=== PATIENT | male | born 1975 | race Hispanic/Latino ===

== ENCOUNTER 2019-01-26 21:27 | Observation (INO) | payer MEDICARE ==
[2019-01-26] MEDS ORDERED: NACL 0.9% 500 ML 500 ML IV ONE (21:46)
[2019-01-26] MEDS ORDERED: NACL 0.9% 1000 ML IV ONE (21:52)
[2019-01-26] MEDS ORDERED: TYLENOL PO ONE (21:54)
[2019-01-26] MEDS ORDERED: MORPHINE IV ONE (21:54)
[2019-01-26] MEDS ORDERED: ZOFRAN IV ONE (21:54)
[2019-01-26] MEDS ORDERED: ZITHROMAX PO ONE (21:56)
--- NOTE | 2019-01-26 22:01 | Emergency Department Report ---
- General Chief Complaint: Upper Respiratory Infection Stated Complaint: COLD SX Time Seen by Provider: 01/26/19 21:44 Source: patient Mode of arrival: Ambulatory Limitations: No Limitations - History of Present Illness Initial Comments: 43-year-old male with a past medical history of obesity, anxiety (on Xanax) Crohn's disease of the small intestines, small bowel surgery, perforated ulcer were partial stomach removal, PEG tube tube placement that was removed in October in [facility] presents to the hospital with cough, cold, and fever 2-3 days. Patient recently relocated here from [facility] 2 weeks ago. He does not have a local PMD. Recent surgery and outpatient follow-up with in [place]. Patient complains of a sore throat, cough productive of sputum, f rontal headache, generalized body aches, and fever 2-3 days. Patient didn't receive a flu shot. Positive nausea. Patient complains of pain around recent PEG removal site. He denies vomiting, dysuria, or diarrhea. Patient takes [place] as needed for chronic pain, Xanax for anxiety, and prednisone daily for Crohn's - Related Data Allergies Allergy/AdvReac Type Severity Reaction Status Date / Time No Known Allergies Allergy Unverified 01/26/19 21:30 ED Review of Systems ROS: Stated complaint: COLD SX Other details as noted in HPI Comment: All other systems reviewed and negative ED Past Medical Hx - Past Medical History Previous Medical History?: Yes Hx Psychiatric Treatment: Yes (anxiety) Additional medical history: chrohn's of small intestine - Surgical History Past Surgical History?: Yes Additional Surgical History: small bowel sx, 2018. October 2018 PEG tube removal. PEG was placed after perforated ulcer and partial stomach removal - Social History Smoking Status: Unknown if ever smoked Substance Use Type: None ED Physical Exam - General Limitations: No Limitations - Other Other exam information: General: No limitations, patient is alert in no acute distress Head exam: Atraumatic, normocephalic Eyes exam: Normal appearance ENT: Moist mucous membrane, tonsillar exudates, erythema, and edema with kissing tonsils. Uvula midline. b/l cauliflower ears Neck exam: Normal inspection, full range of motion, no meningismus nontender Respiratory exam: Clear to auscultation bilateral, no wheezes, rales, crackles Cardiovascular: Tachycardic regular rhythm Abdomen: Soft, nondistended, midline vertical surgical scar noted. Mild erythema and tenderness along the apex stoma site which is closed and healing, with normal bowel sounds, no rebound, or guarding Extremity: Full range of motion normal inspection no deformity Back: Normal Inspection, full range of motion, no tenderness Neurologic: Alert, oriented x3, cranial nerves intact, no motor or sensory deficit Psychiatric: normal affect, normal mood Skin: Warm, dry, intact ED Course Vital Signs 01/26/19 01/26/19 01/26/19 21:42 21:46 22:00 Temperature 101.4 F H Pulse Rate 122 H 111 H Respiratory 20 28 H Rate Blood Pressure 156/80 164/101 143/100 Blood Pressure [Left] O2 Sat by Pulse 99 98 93 Oximetry 01/26/19 01/26/19 01/26/19 22:06 22:11 22:36 Temperature Pulse Rate Respiratory 20 20 16 Rate Blood Pressure Blood Pressure [Left] O2 Sat by Pulse 99 Oximetry 01/26/19 01/27/19 01/27/19 23:35 00:10 00:58 Temperature 101.2 F H 102.4 F H 102.7 F H Pulse Rate 107 H 107 H 113 H Respiratory 16 16 16 Rate Blood Pressure Blood Pressure 146/86 138/88 131/89 [Left] O2 Sat by Pulse 95 95 94 Oximetry - ABG Interpretation Ph: 7.458 PCO2: 36 PO2: 51 Bicarbonate: 25 Interpretation: other (hypoxia) Additional Comments: hypoxia on room air ED Medical Decision Making - Lab Data Result diagrams: 01/26/19 21:48 01/26/19 21:48 Lab Results 01/26/19 01/26/19 01/26/19 Range/Units 21:48 21:48 21:48 WBC 8.2 (4.5-11.0) K/mm3 RBC 3.85 (3.65-5.03) M/mm3 Hgb 12.2 (11.8-15.2) gm/dl Hct 35.9 (35.5-45.6) % MCV 93 (84-94) fl MCH 32 (28-32) pg MCHC 34 (32-34) % RDW 17.6 H (13.2-15.2) % Plt Count 210 (140-440) K/mm3 Add Manual Diff Complete Total Counted 100 Seg Neutrophils % [employer] Seg Neuts % (Manual) 90.0 H (40.0-70.0) % Band Neutrophils % 3.0 % Lymphocytes % (Manual) 2.0 L (13.4-35.0) % Reactive Lymphs % (Man) 1.0 % Monocytes % (Manual) 1.0 (0.0-7.3) % Eosinophils % (Manual) 0 (0.0-4.3) % Basophils % (Manual) 0 (0.0-1.8) % Metamyelocytes % 3.0 % Myelocytes % 0 % Promyelocytes % 0 % Blast Cells % 0 % Nucleated RBC % 3.0 H (0.0-0.9) % Seg Neutrophils # Man 7.4 (1.8-7.7) K/mm3 Band Neutrophils # 0.2 K/mm3 Lymphocytes # (Manual) 0.2 L (1.2-5.4) K/mm3 Abs React Lymphs (Man) 0.1 K/mm3 Monocytes # (Manual) 0.1 (0.0-0.8) K/mm3 Eosinophils # (Manual) 0.0 (0.0-0.4) K/mm3 Basophils # (Manual) 0.0 (0.0-0.1) K/mm3 Metamyelocytes # 0.2 K/mm3 Myelocytes # 0.0 K/mm3 Promyelocytes # 0.0 K/mm3 Blast Cells # 0.0 K/mm3 WBC Morphology Not Reportable Hypersegmented Neuts Not Reportable Hyposegmented Neuts Not Reportable Hypogranular Neuts Not Reportable Smudge Cells Not Reportable Toxic Granulation Not Reportable Toxic Vacuolation Not Reportable Dohle Bodies Not Reportable Pelger-Huet Anomaly Not Reportable Shona Rods Not Reportable Platelet Estimate Consistent w auto Clumped Platelets Not Reportable Plt Clumps, EDTA Not Reportable Large Platelets Not Reportable Giant Platelets Not Reportable Platelet Satelliting Not Reportable Plt Morphology Comment Not Reportable RBC Morphology Normal Dimorphic RBCs Not Reportable Polychromasia Not Reportable Hypochromasia Not Reportable Poikilocytosis Not Reportable Anisocytosis Not Reportable Microcytosis Not Reportable Macrocytosis Not Reportable Spherocytes Not Reportable Pappenheimer Bodies Not Reportable Sickle Cells Not Reportable Target Cells Not Reportable Tear Drop Cells Not Reportable Ovalocytes Not Reportable Helmet Cells Not Reportable [place] Bodies Not Reportable [place] Rings Not Reportable [place] Cells Not Reportable Bite Cells Not Reportable Crenated Cell Not Reportable Elliptocytes Not Reportable Acanthocytes (Spur) Not Reportable Rouleaux Not Reportable Hemoglobin C Crystals Not Reportable Schistocytes Not Reportable Malaria parasites Not Reportable Chidi Bodies Not Reportable Hem Pathologist Commnt No PT 12.7 (12.2-14.9) Sec. INR 0.90 (0.87-1.13) POC ABG pH (7.35-7.45) POC ABG pCO2 (35-45) POC ABG pO2 (80-105) POC ABG HCO3 (22-26 mml/L) POC ABG Total CO2 (23-27mmol/L) POC ABG O2 Sat POC ABG Base Excess ((-2) - (+3)mmol/L) VBG pH (7.320-7.420) FiO2 % Sodium 137 (137-145) mmol/L Potassium 4.4 (3.6-5.0) mmol/L Chloride 98.7 (98-107) mmol/L Carbon Dioxide 25 (22-30) mmol/L Anion Gap 18 mmol/L BUN 13 (9-20) mg/dL Creatinine 0.6 L (0.8-1.5) mg/dL Estimated GFR > 60 ml/min BUN/Creatinine Ratio 22 % Glucose 242 H (75-100) mg/dL POC Glucose (70-105) Hemoglobin A1c (4-6) % Lactic Acid (0.7-2.0) mmol/L Calcium 8.8 (8.4-10.2) mg/dL Total Bilirubin 0.40 (0.1-1.2) mg/dL AST 17 (5-40) units/L ALT 30 (7-56) units/L Alkaline Phosphatase 127 (35-129) units/L Total Protein 5.7 L (6.3-8.2) g/dL Albumin 3.2 L (3.9-5) g/dL Albumin/Globulin Ratio 1.3 % Urine Color (Yellow) Urine Turbidity (Clear) Urine pH (5.0-7.0) Ur Specific [place] (1.003-1.030) Urine Protein (Negative) mg/dL Urine Glucose (UA) (Negative) mg/dL Urine Ketones (Negative) mg/dL Urine Blood (Negative) Urine Nitrite (Negative) Urine Bilirubin (Negative) Urine Urobilinogen (<2.0) mg/dL Ur Leukocyte Esterase (Negative) Urine WBC (Auto) (0.0-6.0) /HPF Urine RBC (Auto) (0.0-6.0) /HPF Urine Mucus /HPF Influenza A (Rapid) (Negative) Influenza B (Rapid) (Negative) Group A Strep Rapid (Negative) 01/26/19 01/26/19 01/26/19 Range/Units 21:48 21:48 21:50 WBC (4.5-11.0) K/mm3 RBC (3.65-5.03) M/mm3 Hgb (11.8-15.2) gm/dl Hct (35.5-45.6) % MCV (84-94) fl MCH (28-32) pg MCHC (32-34) % RDW (13.2-15.2) % Plt Count (140-440) K/mm3 Add Manual Diff Total Counted Seg Neutrophils % Seg Neuts % (Manual) (40.0-70.0) % Band Neutrophils % % Lymphocytes % (Manual) (13.4-35.0) % Reactive Lymphs % (Man) % Monocytes % (Manual) (0.0-7.3) % Eosinophils % (Manual) (0.0-4.3) % Basophils % (Manual) (0.0-1.8) % Metamyelocytes % % Myelocytes % % Promyelocytes % % Blast Cells % % Nucleated RBC % (0.0-0.9) % Seg Neutrophils # Man (1.8-7.7) K/mm3 Band Neutrophils # K/mm3 Lymphocytes # (Manual) (1.2-5.4) K/mm3 Abs React Lymphs (Man) K/mm3 Monocytes # (Manual) (0.0-0.8) K/mm3 Eosinophils # (Manual) (0.0-0.4) K/mm3 Basophils # (Manual) (0.0-0.1) K/mm3 Metamyelocytes # K/mm3 Myelocytes # K/mm3 Promyelocytes # K/mm3 Blast Cells # K/mm3 WBC Morphology Hypersegmented Neuts Hyposegmented Neuts Hypogranular Neuts Smudge Cells Toxic Granulation Toxic Vacuolation Dohle Bodies Pelger-Huet Anomaly Shona Rods Platelet Estimate Clumped Platelets Plt Clumps, EDTA Large Platelets Giant Platelets Platelet Satelliting Plt Morphology Comment RBC Morphology Dimorphic RBCs Polychromasia Hypochromasia Poikilocytosis Anisocytosis Microcytosis Macrocytosis Spherocytes Pappenheimer Bodies Sickle Cells Target Cells Tear Drop Cells Ovalocytes Helmet Cells [place] Bodies [place] Rings [place] Cells Bite Cells Crenated Cell Elliptocytes Acanthocytes (Spur) Rouleaux Hemoglobin C Crystals Schistocytes Malaria parasites Chidi Bodies Hem Pathologist Commnt PT (12.2-14.9) Sec. INR (0.87-1.13) POC ABG pH (7.35-7.45) POC ABG pCO2 (35-45) POC ABG pO2 (80-105) POC ABG HCO3 (22-26 mml/L) POC ABG Total CO2 (23-27mmol/L) POC ABG O2 Sat POC ABG Base Excess ((-2) - (+3)mmol/L) VBG pH 7.485 H (7.320-7.420) FiO2 % Sodium (137-145) mmol/L Potassium (3.6-5.0) mmol/L Chloride (98-107) mmol/L Carbon Dioxide (22-30) mmol/L Anion Gap mmol/L BUN (9-20) mg/dL Creatinine (0.8-1.5) mg/dL Estimated GFR ml/min BUN/Creatinine Ratio % Glucose (75-100) mg/dL POC Glucose (70-105) Hemoglobin A1c (4-6) % Lactic Acid 2.20 H* (0.7-2.0) mmol/L Calcium (8.4-10.2) mg/dL Total Bilirubin (0.1-1.2) mg/dL AST (5-40) units/L ALT (7-56) units/L Alkaline Phosphatase (35-129) units/L Total Protein (6.3-8.2) g/dL Albumin (3.9-5) g/dL Albumin/Globulin Ratio % Urine Color (Yellow) Urine Turbidity (Clear) Urine pH (5.0-7.0) Ur Specific [place] (1.003-1.030) Urine Protein (Negative) mg/dL Urine Glucose (UA) (Negative) mg/dL Urine Ketones (Negative) mg/dL Urine Blood (Negative) Urine Nitrite (Negative) Urine Bilirubin (Negative) Urine Urobilinogen (<2.0) mg/dL Ur Leukocyte Esterase (Negative) Urine WBC (Auto) (0.0-6.0) /HPF Urine RBC (Auto) (0.0-6.0) /HPF Urine Mucus /HPF Influenza A (Rapid) (Negative) Influenza B (Rapid) (Negative) Group A Strep Rapid Negative (Negative) 01/26/19 01/26/19 01/26/19 Range/Units 21:50 22:27 22:50 WBC (4.5-11.0) K/mm3 RBC (3.65-5.03) M/mm3 Hgb (11.8-15.2) gm/dl Hct (35.5-45.6) % MCV (84-94) fl MCH (28-32) pg MCHC (32-34) % RDW (13.2-15.2) % Plt Count (140-440) K/mm3 Add Manual Diff Total Counted Seg Neutrophils % Seg Neuts % (Manual) (40.0-70.0) % Band Neutrophils % % Lymphocytes % (Manual) (13.4-35.0) % Reactive Lymphs % (Man) % Monocytes % (Manual) (0.0-7.3) % Eosinophils % (Manual) (0.0-4.3) % Basophils % (Manual) (0.0-1.8) % Metamyelocytes % % Myelocytes % % Promyelocytes % % Blast Cells % % Nucleated RBC % (0.0-0.9) % Seg Neutrophils # Man (1.8-7.7) K/mm3 Band Neutrophils # K/mm3 Lymphocytes # (Manual) (1.2-5.4) K/mm3 Abs React Lymphs (Man) K/mm3 Monocytes # (Manual) (0.0-0.8) K/mm3 Eosinophils # (Manual) (0.0-0.4) K/mm3 Basophils # (Manual) (0.0-0.1) K/mm3 Metamyelocytes # K/mm3 Myelocytes # K/mm3 Promyelocytes # K/mm3 Blast Cells # K/mm3 WBC Morphology Hypersegmented Neuts Hyposegmented Neuts Hypogranular Neuts Smudge Cells Toxic Granulation Toxic Vacuolation Dohle Bodies Pelger-Huet Anomaly Shona Rods Platelet Estimate Clumped Platelets Plt Clumps, EDTA Large Platelets Giant Platelets Platelet Satelliting Plt Morphology Comment RBC Morphology Dimorphic RBCs Polychromasia Hypochromasia Poikilocytosis Anisocytosis Microcytosis Macrocytosis Spherocytes Pappenheimer Bodies Sickle Cells Target Cells Tear Drop Cells Ovalocytes Helmet Cells [place] Bodies [place] Rings [place] Cells Bite Cells Crenated Cell Elliptocytes Acanthocytes (Spur) Rouleaux Hemoglobin C Crystals Schistocytes Malaria parasites Chidi Bodies Hem Pathologist Commnt PT (12.2-14.9) Sec. INR (0.87-1.13) POC ABG pH (7.35-7.45) POC ABG pCO2 (35-45) POC ABG pO2 (80-105) POC ABG HCO3 (22-26 mml/L) POC ABG Total CO2 (23-27mmol/L) POC ABG O2 Sat POC ABG Base Excess ((-2) - (+3)mmol/L) VBG pH (7.320-7.420) FiO2 % Sodium (137-145) mmol/L Potassium (3.6-5.0) mmol/L Chloride (98-107) mmol/L Carbon Dioxide (22-30) mmol/L Anion Gap mmol/L BUN (9-20) mg/dL Creatinine (0.8-1.5) mg/dL Estimated GFR ml/min BUN/Creatinine Ratio % Glucose (75-100) mg/dL POC Glucose (70-105) Hemoglobin A1c 6.8 H (4-6) % Lactic Acid 1.40 (0.7-2.0) mmol/L Calcium (8.4-10.2) mg/dL Total Bilirubin (0.1-1.2) mg/dL AST (5-40) units/L ALT (7-56) units/L Alkaline Phosphatase (35-129) units/L Total Protein (6.3-8.2) g/dL Albumin (3.9-5) g/dL Albumin/Globulin Ratio % Urine Color (Yellow) Urine Turbidity (Clear) Urine pH (5.0-7.0) Ur Specific [place] (1.003-1.030) Urine Protein (Negative) mg/dL Urine Glucose (UA) (Negative) mg/dL Urine Ketones (Negative) mg/dL Urine Blood (Negative) Urine Nitrite (Negative) Urine Bilirubin (Negative) Urine Urobilinogen (<2.0) mg/dL Ur Leukocyte Esterase (Negative) Urine WBC (Auto) (0.0-6.0) /HPF Urine RBC (Auto) (0.0-6.0) /HPF Urine Mucus /HPF Influenza A (Rapid) Positive A (Negative) Influenza B (Rapid) Negative (Negative) Group A Strep Rapid (Negative) 01/26/19 01/27/19 01/27/19 Range/Units 23:23 00:32 00:57 WBC (4.5-11.0) K/mm3 RBC (3.65-5.03) M/mm3 Hgb (11.8-15.2) gm/dl Hct (35.5-45.6) % MCV (84-94) fl MCH (28-32) pg MCHC (32-34) % RDW (13.2-15.2) % Plt Count (140-440) K/mm3 Add Manual Diff Total Counted Seg Neutrophils % Seg Neuts % (Manual) (40.0-70.0) % Band Neutrophils % % Lymphocytes % (Manual) (13.4-35.0) % Reactive Lymphs % (Man) % Monocytes % (Manual) (0.0-7.3) % Eosinophils % (Manual) (0.0-4.3) % Basophils % (Manual) (0.0-1.8) % Metamyelocytes % % Myelocytes % % Promyelocytes % % Blast Cells % % Nucleated RBC % (0.0-0.9) % Seg Neutrophils # Man (1.8-7.7) K/mm3 Band Neutrophils # K/mm3 Lymphocytes # (Manual) (1.2-5.4) K/mm3 Abs React Lymphs (Man) K/mm3 Monocytes # (Manual) (0.0-0.8) K/mm3 Eosinophils # (Manual) (0.0-0.4) K/mm3 Basophils # (Manual) (0.0-0.1) K/mm3 Metamyelocytes # K/mm3 Myelocytes # K/mm3 Promyelocytes # K/mm3 Blast Cells # K/mm3 WBC Morphology Hypersegmented Neuts Hyposegmented Neuts Hypogranular Neuts Smudge Cells Toxic Granulation Toxic Vacuolation Dohle Bodies Pelger-Huet Anomaly Shona Rods Platelet Estimate Clumped Platelets Plt Clumps, EDTA Large Platelets Giant Platelets Platelet Satelliting Plt Morphology Comment RBC Morphology Dimorphic RBCs Polychromasia Hypochromasia Poikilocytosis Anisocytosis Microcytosis Macrocytosis Spherocytes Pappenheimer Bodies Sickle Cells Target Cells Tear Drop Cells Ovalocytes Helmet Cells [place] Bodies [place] Rings [place] Cells Bite Cells Crenated Cell Elliptocytes Acanthocytes (Spur) Rouleaux Hemoglobin C Crystals Schistocytes Malaria parasites Chidi Bodies Hem Pathologist Commnt PT (12.2-14.9) Sec. INR (0.87-1.13) POC ABG pH (7.35-7.45) POC ABG pCO2 (35-45) POC ABG pO2 (80-105) POC ABG HCO3 (22-26 mml/L) POC ABG Total CO2 (23-27mmol/L) POC ABG O2 Sat POC ABG Base Excess ((-2) - (+3)mmol/L) VBG pH (7.320-7.420) FiO2 % Sodium (137-145) mmol/L Potassium (3.6-5.0) mmol/L Chloride (98-107) mmol/L Carbon Dioxide (22-30) mmol/L Anion Gap mmol/L BUN (9-20) mg/dL Creatinine (0.8-1.5) mg/dL Estimated GFR ml/min BUN/Creatinine Ratio % Glucose (75-100) mg/dL POC Glucose 71 (70-105) Hemoglobin A1c (4-6) % Lactic Acid 1.20 (0.7-2.0) mmol/L Calcium (8.4-10.2) mg/dL Total Bilirubin (0.1-1.2) mg/dL AST (5-40) units/L ALT (7-56) units/L Alkaline Phosphatase (35-129) units/L Total Protein (6.3-8.2) g/dL Albumin (3.9-5) g/dL Albumin/Globulin Ratio % Urine Color Yellow (Yellow) Urine Turbidity Clear (Clear) Urine pH 7.0 (5.0-7.0) Ur Specific [place] 1.027 (1.003-1.030) Urine Protein <15 mg/dl (Negative) mg/dL Urine Glucose (UA) 150 (Negative) mg/dL Urine Ketones Neg (Negative) mg/dL Urine Blood Neg (Negative) Urine Nitrite Neg (Negative) Urine Bilirubin Neg (Negative) Urine Urobilinogen 4.0 (<2.0) mg/dL Ur Leukocyte Esterase Neg (Negative) Urine WBC (Auto) < 1.0 (0.0-6.0) /HPF Urine RBC (Auto) < 1.0 (0.0-6.0) /HPF Urine Mucus Few /HPF Influenza A (Rapid) (Negative) Influenza B (Rapid) (Negative) Group A Strep Rapid (Negative) 01/27/19 Range/Units 01:15 WBC (4.5-11.0) K/mm3 RBC (3.65-5.03) M/mm3 Hgb (11.8-15.2) gm/dl Hct (35.5-45.6) % MCV (84-94) fl MCH (28-32) pg MCHC (32-34) % RDW (13.2-15.2) % Plt Count (140-440) K/mm3 Add Manual Diff Total Counted Seg Neutrophils % Seg Neuts % (Manual) (40.0-70.0) % Band Neutrophils % % Lymphocytes % (Manual) (13.4-35.0) % Reactive Lymphs % (Man) % Monocytes % (Manual) (0.0-7.3) % Eosinophils % (Manual) (0.0-4.3) % Basophils % (Manual) (0.0-1.8) % Metamyelocytes % % Myelocytes % % Promyelocytes % % Blast Cells % % Nucleated RBC % (0.0-0.9) % Seg Neutrophils # Man (1.8-7.7) K/mm3 Band Neutrophils # K/mm3 Lymphocytes # (Manual) (1.2-5.4) K/mm3 Abs React Lymphs (Man) K/mm3 Monocytes # (Manual) (0.0-0.8) K/mm3 Eosinophils # (Manual) (0.0-0.4) K/mm3 Basophils # (Manual) (0.0-0.1) K/mm3 Metamyelocytes # K/mm3 Myelocytes # K/mm3 Promyelocytes # K/mm3 Blast Cells # K/mm3 WBC Morphology Hypersegmented Neuts Hyposegmented Neuts Hypogranular Neuts Smudge Cells Toxic Granulation Toxic Vacuolation Dohle Bodies Pelger-Huet Anomaly Shona Rods Platelet Estimate Clumped Platelets Plt Clumps, EDTA Large Platelets Giant Platelets Platelet Satelliting Plt Morphology Comment RBC Morphology Dimorphic RBCs Polychromasia Hypochromasia Poikilocytosis Anisocytosis Microcytosis Macrocytosis Spherocytes Pappenheimer Bodies Sickle Cells Target Cells Tear Drop Cells Ovalocytes Helmet Cells [place] Bodies [place] Rings [place] Cells Bite Cells Crenated Cell Elliptocytes Acanthocytes (Spur) Rouleaux Hemoglobin C Crystals Schistocytes Malaria parasites Chidi Bodies Hem Pathologist Commnt PT (12.2-14.9) Sec. INR (0.87-1.13) POC ABG pH 7.458 H (7.35-7.45) POC ABG pCO2 36.2 (35-45) POC ABG pO2 51 L (80-105) POC ABG HCO3 25.6 (22-26 mml/L) POC ABG Total CO2 27 (23-27mmol/L) POC ABG O2 Sat 88 POC ABG Base Excess 2 ((-2) - (+3)mmol/L) VBG pH (7.320-7.420) FiO2 21 % Sodium (137-145) mmol/L Potassium (3.6-5.0) mmol/L Chloride (98-107) mmol/L Carbon Dioxide (22-30) mmol/L Anion Gap mmol/L BUN (9-20) mg/dL Creatinine (0.8-1.5) mg/dL Estimated GFR ml/min BUN/Creatinine Ratio % Glucose (75-100) mg/dL POC Glucose (70-105) Hemoglobin A1c (4-6) % Lactic Acid (0.7-2.0) mmol/L Calcium (8.4-10.2) mg/dL Total Bilirubin (0.1-1.2) mg/dL AST (5-40) units/L ALT (7-56) units/L Alkaline Phosphatase (35-129) units/L Total Protein (6.3-8.2) g/dL Albumin (3.9-5) g/dL Albumin/Globulin Ratio % Urine Color (Yellow) Urine Turbidity (Clear) Urine pH (5.0-7.0) Ur Specific [place] (1.003-1.030) Urine Protein (Negative) mg/dL Urine Glucose (UA) (Negative) mg/dL Urine Ketones (Negative) mg/dL Urine Blood (Negative) Urine Nitrite (Negative) Urine Bilirubin (Negative) Urine Urobilinogen (<2.0) mg/dL Ur Leukocyte Esterase (Negative) Urine WBC (Auto) (0.0-6.0) /HPF Urine RBC (Auto) (0.0-6.0) /HPF Urine Mucus /HPF Influenza A (Rapid) (Negative) Influenza B (Rapid) (Negative) Group A Strep Rapid (Negative) - EKG Data -: EKG Interpreted by Me (sally) EKG shows normal: sinus rhythm, axis (qrs -73), QRS complexes (qrsd 80), ST-T waves (no stemi) Rate: tachycardia (108) - EKG Data When compared to previous EKG there are: previous EKG unavailable - Radiology Data Radiology results: report reviewed PROCEDURE: XR CHEST 1V AP TECHNIQUE: Chest single AP HISTORY: possible Sepsis COMPARISONS: FINDINGS: Cardiac and mediastinal contours are unremarkable. No focal pulmonary infiltrate identified. No pleural fluid collection seen. Pulmonary vasculature is unremarkable. IMPRESSION: No acute findings in the chest. PROCEDURE: XR CHEST 1V AP TECHNIQUE: Chest single AP HISTORY: possible Sepsis COMPARISONS: FINDINGS: Cardiac and mediastinal contours are unremarkable. No focal pulmonary infiltrate identified. No pleural fluid collection seen. Pulmonary vasculature is unremarkable. IMPRESSION: No acute findings in the chest. - Medical Decision Making Patient states he is doing a lot better with ED treatment included a 30 Ml/kg bolus of normal saline, morphine, Zofran, Motrin, Tylenol, and by mouth azithromycin. Patient remains febrile, tachycardic, and is hypoxic on room air as verified by ABG despite treatment. Patient will be admitted to the hospitalist service for further treatment. Influenza positive. Lactic acid improved with ED treatment. Patient's hypoglycemia likely secondary to steroid use and improve with IV normal saline and insulin was not necessary. - Differential Diagnosis pneumonia, bronchitis, pharyngitis, sinusitis, influenza, sepsis Critical Care Time: No Critical care attestation.: If time is entered above; I have spent that time in minutes in the direct care of this critically ill patient, excluding procedure time. ED Disposition Clinical Impression: Influenza A, Hypoxia, Obesity, Steroid dependence, Benzodiazepine dependence, Chronic narcotic use, Anxiety, Hx of Crohn's disease, Chronic pain, Hyperglycemia Disposition: OP ADMIT IP TO THIS HOSP Is pt being admited?: Yes Condition: Stable Time of Disposition: 02:11 (Dr Ceuto/hosp)
[2019-01-26 22:02] LABS: Hematocrit 35.9 % (35.5-45.6); Hemoglobin 12.2 gm/dl (11.8-15.2); Mean Corpuscular HGB Conc 34 % (32-34); Mean Corpuscular Volume 93 fl (84-94); Platelet Count 210 K/mm3 (140-440); Red Blood Count 3.85 M/mm3 (3.65-5.03); Red Cell Distribution Width 17.6 % (13.2-15.2)
[2019-01-26 22:13] LABS: INR 0.9 (0.87-1.13)
[2019-01-26 22:17] LABS: Alanine Aminotransferase 30 units/L (7-56); Albumin 3.2 g/dL (3.9-5); BUN/Creatinine Ratio 22; Blood Urea Nitrogen 13 mg/dL (9-20); Calcium 8.8 mg/dL (8.4-10.2); Hemolysis Index 8
--- NOTE | 2019-01-26 22:52 | XRay Report ---
PROCEDURE: XR CHEST 1V AP TECHNIQUE: Chest single AP HISTORY: possible Sepsis COMPARISONS: FINDINGS: Cardiac and mediastinal contours are unremarkable. No focal pulmonary infiltrate identified. No pleur al fluid collection seen. Pulmonary vasculature is unremarkable. IMPRESSION: No acute findings in the chest. This document is electronically signed by Skip Cleveland MD., January 26 2019 10:50:20 PM ET
[2019-01-26 23:41] LABS: Bilirubin,Urine NEG (Negative); Blood,Urine NEG (Negative); Color,Urine Yellow (Yellow); Mucus,Urine FEW /HPF; Protein,Urine <15 mg/dL mg/dL (Negative); RBC,Urine < 1.0 /HPF (0.0-6.0); WBC,Urine < 1.0 /HPF (0.0-6.0)
[2019-01-27 00:05] LABS: Band Neutrophils # (Manual) 0.2 K/mm3; Basophils % (Manual) 0 % (0.0-1.8); Eosinophils % (Manual) 0 % (0.0-4.3); Platelet Estimate Consistent w Auto; RBC Morphology Normal; Total Cells Counted 100
[2019-01-27] MEDS ORDERED: IBUPROFEN PO ONE (00:09)
[2019-01-27] MEDS ORDERED: TESSALON PERLES PO ONE (00:59)
[2019-01-27] MEDS ORDERED: AMBIEN PO PRN (02:40)
[2019-01-27] MEDS ORDERED: NARCAN 0.4 MG/1 ML IV PRN (02:40)
[2019-01-27] MEDS ORDERED: D50W (25GM) Syringe IV PRN (02:40)
[2019-01-27] MEDS ORDERED: ZOFRAN IV PRN (02:40)
[2019-01-27] MEDS ORDERED: SODIUM CHLORIDE FLUSH SYRINGE 10 ML IV PRN (02:40)
[2019-01-27] MEDS ORDERED: ALUM-MAG HYDROX-SIMETH 200-200-20MG/5ML PO PRN (02:40)
--- NOTE | 2019-01-27 02:56 | History and Physical Report ---
History of Present Illness Date of examination: 01/27/19 Chief complaint: Shortness of breath cough and upper respiratory symptoms with abdominal pain History of present illness: 43-year-old male with a past medical history of obesity, anxiety (on Xanax) Crohn's disease of the small intestines, small bowel surgery, perforated ulcer were partial stomach removal, PEG tube tube placement that was removed in October in [facility] presents to the hospital with cough, cold, and fever 2-3 days. Patient recently relocated here from [facility] 2 weeks ago. He does not have a local PMD. Recent surgery and outpatient follow-up with in [place]. Patient complains of a sore throat, cough productive of sputum, frontal headache, generalized body aches, and fever 2-3 days. Patient didn't receive a flu shot. Positive nausea. Patient complains of pain around recent PEG removal site. He denies vomiting, dysuria, or diarrhea. Patient takes [place] as needed for chronic pain, Xanax for anxiety, and prednisone daily for Crohn's Previous Medical History?: Yes Hx Psychiatric Treatment: Yes (anxiety) Additional medical history: chrohn's of small intestine - Surgical History Past Surgical History?: Yes Additional Surgical History: small bowel sx, 2018. October 2018 PEG tube removal. PEG was placed after perforated ulcer and partial stomach removal Past History Social history: Lives alone, smoking, full code Medications and Allergies Allergies Allergy/AdvReac Type Severity Reaction Status Date / Time No Known Allergies Allergy Verified 01/27/19 02:50 Home Medications Medication Instructions Recorded Confirmed Last Taken Type ALPRAZolam [Xanax] 1 mg PO BID 01/27/19 01/27/19 Unknown History Esomeprazole Magnesium [Nexium] 40 mg PO QAM 01/27/19 01/27/19 Unknown History HYDROcodone/APAP 10-325 [[place] 1 each PO Q6HR PRN 01/27/19 01/27/19 Unknown History 10/325] Ondansetron [Zofran Odt] 4 mg PO Q8HR 01/27/19 01/27/19 Unknown History Ranitidine HCl [Zantac] 300 mg PO QDAY PRN 01/27/19 01/27/19 Unknown History buPROPion [Wellbutrin] 40 mg PO QDAY 01/27/19 01/27/19 Unknown History predniSONE [Deltasone] 20 mg PO TID 01/27/19 01/27/19 Unknown History Active Meds: Active Medications Acetaminophen (Tylenol) 650 mg PO Q4H PRN PRN Reason: Pain MILD(1-3)/Fever >100.5/RODRIGEZ Al Hydrox/Mg Hydrox/Simethicone (Alum-Mag Hydrox-Simeth [phone]/5ml) 30 ml PO Q4H PRN PRN Reason: Indigestion Alprazolam (Xanax) 1 mg PO BID ELVIRA Budesonide (Pulmicort) 0.5 mg IH Q12HRT ELVIRA Bupropion HCl (Wellbutrin) 40 mg PO QDAY ELVIRA Budesonide 1 mg/ Arformoterol (Tartrate 15 mcg) 0 mg IH Q12HRT ELVIRA Dextrose (D50w (25gm) Syringe) 50 ml IV PRN PRN PRN Reason: Hypoglycemia Enoxaparin Sodium (Lovenox) 40 mg SUB-Q QDAY [facility] Famotidine (Pepcid) 20 mg PO BID [facility] Hydromorphone HCl (Dilaudid) 2 mg IV Q3H PRN PRN Reason: Pain , Severe (7-10) Sodium Chloride (Nacl 0.9% 1000 Ml) 1,000 mls @ 125 mls/hr IV DIRECT [facility] Insulin Human Lispro (Humalog) 0 unit SUB-Q ACHS [facility]; Protocol Ipratropium Weston (Atrovent) 0.5 mg IH Q6HRT [facility] Levalbuterol HCl (Xopenex) 0.63 mg IH Q6H [facility] Miscellaneous Medication (Esomeprazole Magnesium [Nexium]) 40 mg PO QAM [facility] Naloxone HCl (Narcan 0.4 Mg/1 Ml) 0.1 mg IV Q2MIN PRN PRN Reason: Res Rate </= 8 or 02 SAT < 92% Ondansetron HCl (Zofran) 4 mg IV Q8H PRN PRN Reason: Nausea And Vomiting Oxycodone/Acetaminophen (Percocet 5/325) 1 tab PO Q6H PRN PRN Reason: Pain, Moderate (4-6) Prednisone (Deltasone) 20 mg PO TID [facility] Sodium Chloride (Sodium Chloride Flush Syringe 10 Ml) 10 ml IV BID [facility] Sodium Chloride (Sodium Chloride Flush Syringe 10 Ml) 10 ml IV PRN PRN PRN Reason: LINE FLUSH Zolpidem Tartrate (Ambien) 5 mg PO QHS PRN PRN Reason: Insomnia Exam - Physical Exam Narrative exam: General: No limitations, patient is alert in no acute distress Head exam: Atraumatic, normocephalic Eyes exam: Normal appearance ENT: Moist mucous membrane, tonsillar exudates, erythema, and edema with kissing tonsils. Uvula midline. b/l cauliflower ears Neck exam: Normal inspection, full range of motion, no meningismus nontender Respiratory exam: Clear to auscultation bilateral, no wheezes, rales, crackles Cardiovascular: Tachycardic regular rhythm Abdomen: Soft, nondistended, midline vertical surgical scar noted. Mild erythema and tenderness along the apex stoma site which is closed and healing, with normal bowel sounds, no rebound, or guarding Extremity: Full range of motion normal inspection no deformity Back: Normal Inspection, full range of motion, no tenderness Neurologic: Alert, oriented x3, cranial nerves intact, no motor or sensory deficit Psychiatric: normal affect, normal mood Skin: Warm, dry, intact - Constitutional Vitals: Temp Pulse Resp BP Pulse Ox 101.2 F H 115 H 18 130/83 93 01/27/19 02:18 01/27/19 02:18 01/27/19 02:18 01/27/19 02:18 01/27/19 02:18 Results - Labs CBC & Chem 7: 01/26/19 21:48 01/26/19 21:48 Labs: Laboratory Last Values WBC 8.2 K/mm3 (4.5-11.0) 01/26/19 21:48 RBC 3.85 M/mm3 (3.65-5.03) 01/26/19 21:48 Hgb 12.2 gm/dl (11.8-15.2) 01/26/19 21:48 Hct 35.9 % (35.5-45.6) 01/26/19 21:48 MCV 93 fl (84-94) 01/26/19 21:48 MCH 32 pg (28-32) 01/26/19 21:48 MCHC 34 % (32-34) 01/26/19 21:48 RDW 17.6 % (13.2-15.2) H 01/26/19 21:48 Plt Count 210 K/mm3 (140-440) 01/26/19 21:48 Add Manual Diff Complete 01/26/19 21:48 Total Counted 100 01/26/19 21:48 Seg Neutrophils % Welfare Aide 01/26/19 21:48 Seg Neuts % (Manual) 90.0 % (40.0-70.0) H 01/26/19 21:48 Band Neutrophils % 3.0 % 01/26/19 21:48 Lymphocytes % (Manual) 2.0 % (13.4-35.0) L 01/26/19 21:48 Reactive Lymphs % (Man) 1.0 % 01/26/19 21:48 Monocytes % (Manual) 1.0 % (0.0-7.3) 01/26/19 21:48 Eosinophils % (Manual) 0 % (0.0-4.3) 01/26/19 21:48 Basophils % (Manual) 0 % (0.0-1.8) 01/26/19 21:48 Metamyelocytes % 3.0 % 01/26/19 21:48 Myelocytes % 0 % 01/26/19 21:48 Promyelocytes % 0 % 01/26/19 21:48 Blast Cells % 0 % 01/26/19 21:48 Nucleated RBC % 3.0 % (0.0-0.9) H 01/26/19 21:48 Seg Neutrophils # Man 7.4 K/mm3 (1.8-7.7) 01/26/19 21:48 Band Neutrophils # 0.2 K/mm3 01/26/19 21:48 Lymphocytes # (Manual) 0.2 K/mm3 (1.2-5.4) L 01/26/19 21:48 Abs React Lymphs (Man) 0.1 K/mm3 01/26/19 21:48 Monocytes # (Manual) 0.1 K/mm3 (0.0-0.8) 01/26/19 21:48 Eosinophils # (Manual) 0.0 K/mm3 (0.0-0.4) 01/26/19 21:48 Basophils # (Manual) 0.0 K/mm3 (0.0-0.1) 01/26/19 21:48 Metamyelocytes # 0.2 K/mm3 01/26/19 21:48 Myelocytes # 0.0 K/mm3 01/26/19 21:48 Promyelocytes # 0.0 K/mm3 01/26/19 21:48 Blast Cells # 0.0 K/mm3 01/26/19 21:48 WBC Morphology Not Reportable 01/26/19 21:48 Hypersegmented Neuts Not Reportable 01/26/19 21:48 Hyposegmented Neuts Not Reportable 01/26/19 21:48 Hypogranular Neuts Not Reportable 01/26/19 21:48 Smudge Cells Not Reportable 01/26/19 21:48 Toxic Granulation Not Reportable 01/26/19 21:48 Toxic Vacuolation Not Reportable 01/26/19 21:48 Dohle Bodies Not Reportable 01/26/19 21:48 Pelger-Huet Anomaly Not Reportable 01/26/19 21:48 Shona Rods Not Reportable 01/26/19 21:48 Platelet Estimate Consistent w auto 01/26/19 21:48 Clumped Platelets Not Reportable 01/26/19 21:48 Plt Clumps, EDTA Not Reportable 01/26/19 21:48 Large Platelets Not Reportable 01/26/19 21:48 Giant Platelets Not Reportable 01/26/19 21:48 Platelet Satelliting Not Reportable 01/26/19 21:48 Plt Morphology Comment Not Reportable 01/26/19 21:48 RBC Morphology Normal 01/26/19 21:48 Dimorphic RBCs Not Reportable 01/26/19 21:48 Polychromasia Not Reportable 01/26/19 21:48 Hypochromasia Not Reportable 01/26/19 21:48 Poikilocytosis Not Reportable 01/26/19 21:48 Anisocytosis Not Reportable 01/26/19 21:48 Microcytosis Not Reportable 01/26/19 21:48 Macrocytosis Not Reportable 01/26/19 21:48 Spherocytes Not Reportable 01/26/19 21:48 Pappenheimer Bodies Not Reportable 01/26/19 21:48 Sickle Cells Not Reportable 01/26/19 21:48 Target Cells Not Reportable 01/26/19 21:48 Tear Drop Cells Not Reportable 01/26/19 21:48 Ovalocytes Not Reportable 01/26/19 21:48 Helmet Cells Not Reportable 01/26/19 21:48 [place] Bodies Not Reportable 01/26/19 21:48 [place] Rings Not Reportable 01/26/19 21:48 William Cells Not Reportable 01/26/19 21:48 Bite Cells Not Reportable 01/26/19 21:48 Crenated Cell Not Reportable 01/26/19 21:48 Elliptocytes Not Reportable 01/26/19 21:48 Acanthocytes (Spur) Not Reportable 01/26/19 21:48 Rouleaux Not Reportable 01/26/19 21:48 Hemoglobin C Crystals Not Reportable 01/26/19 21:48 Schistocytes Not Reportable 01/26/19 21:48 Malaria parasites Not Reportable 01/26/19 21:48 Chidi Bodies Not Reportable 01/26/19 21:48 Hem Pathologist Commnt No 01/26/19 21:48 PT 12.7 Sec. (12.2-14.9) 01/26/19 21:48 INR 0.90 (0.87-1.13) 01/26/19 21:48 POC ABG pH 7.458 (7.35-7.45) H 01/27/19 01:15 POC ABG pCO2 36.2 (35-45) 01/27/19 01:15 POC ABG pO2 51 (80-105) L 01/27/19 01:15 POC ABG HCO3 25.6 (22-26 mml/L) 01/27/19 01:15 POC ABG Total CO2 27 (23-27mmol/L) 01/27/19 01:15 POC ABG O2 Sat 88 01/27/19 01:15 POC ABG Base Excess 2 ((-2) - (+3)mmol/L) 01/27/19 01:15 VBG pH 7.485 (7.320-7.420) H 01/26/19 21:48 FiO2 21 % 01/27/19 01:15 Sodium 137 mmol/L (137-145) 01/26/19 21:48 Potassium 4.4 mmol/L (3.6-5.0) 01/26/19 21:48 Chloride 98.7 mmol/L (98-107) 01/26/19 21:48 Carbon Dioxide 25 mmol/L (22-30) 01/26/19 21:48 Anion Gap 18 mmol/L 01/26/19 21:48 BUN 13 mg/dL (9-20) 01/26/19 21:48 Creatinine 0.6 mg/dL (0.8-1.5) L 01/26/19 21:48 Estimated GFR > 60 ml/min 01/26/19 21:48 BUN/Creatinine Ratio 22 % 01/26/19 21:48 Glucose 242 mg/dL (75-100) H 01/26/19 21:48 POC Glucose 71 (70-105) 01/27/19 00:57 Hemoglobin A1c 6.8 % (4-6) H 01/26/19 22:27 Lactic Acid 1.20 mmol/L (0.7-2.0) 01/27/19 00:32 Calcium 8.8 mg/dL (8.4-10.2) 01/26/19 21:48 Total Bilirubin 0.40 mg/dL (0.1-1.2) 01/26/19 21:48 AST 17 units/L (5-40) 01/26/19 21:48 ALT 30 units/L (7-56) 01/26/19 21:48 Alkaline Phosphatase 127 units/L (35-129) 01/26/19 21:48 Total Protein 5.7 g/dL (6.3-8.2) L 01/26/19 21:48 Albumin 3.2 g/dL (3.9-5) L 01/26/19 21:48 Albumin/Globulin Ratio 1.3 % 01/26/19 21:48 Urine Color Yellow (Yellow) 01/26/19 23:23 Urine Turbidity Clear (Clear) 01/26/19 23:23 Urine pH 7.0 (5.0-7.0) 01/26/19 23:23 Ur Specific [place] 1.027 (1.003-1.030) 01/26/19 23:23 Urine Protein <15 mg/dl mg/dL (Negative) 01/26/19 23:23 Urine Glucose (UA) 150 mg/dL (Negative) 01/26/19 23:23 Urine Ketones Neg mg/dL (Negative) 01/26/19 23:23 Urine Blood Neg (Negative) 01/26/19 23:23 Urine Nitrite Neg (Negative) 01/26/19 23:23 Urine Bilirubin Neg (Negative) 01/26/19 23:23 Urine Urobilinogen 4.0 mg/dL (<2.0) 01/26/19 23:23 Ur Leukocyte Esterase Neg (Negative) 01/26/19 23:23 Urine WBC (Auto) < 1.0 /HPF (0.0-6.0) 01/26/19 23:23 Urine RBC (Auto) < 1.0 /HPF (0.0-6.0) 01/26/19 23:23 Urine Mucus Few /HPF 01/26/19 23:23 Influenza A (Rapid) Positive (Negative) A 01/26/19 21:50 Influenza B (Rapid) Negative (Negative) 01/26/19 21:50 Group A Strep Rapid Negative (Negative) 01/26/19 21:50 - Imaging and Cardiology Imaging and Cardiology: EKG shows normal: sinus rhythm, axis (qrs -73), QRS complexes (qrsd 80), ST-T waves (no stemi) Rate: tachycardia (108) Chest x-ray showing no acute findings in the chest Assessment and Plan Assessment and plan: Assessment and plan: * Acute hypoxic respiratory failure likely secondary to influenza causing possible viral pneumonia along with undiagnosed COPD with exacerbation * COPD exacerbation * Influenza A * Crohn's disease with possible mild flare but no bloody diarrhea * Acute on chronic abdominal pain likely secondary to underlying Crohn's ente ritis * Acute tonsillitis likely viral - strep test negative * Anxiety * Chronic benzodiazepine and narcotic use * Fever with Tachycardia likely secondary to above Plan: Admit to telemetry floor for telemetry as well as continuous pulse ox Start Tamiflu Supportive and symptomatic management with IV fluids and pain medications As for his acute hypoxic respiratory failure will get CT chest without contrast to evaluate underlying lung process although chest x-rays negative mean E patient aggressively for COPD exacerbation. Likely mild exacerbation continue his home. Prednisone 20 mg 3 times a day Prevacid when necessary and scheduled bronchodilators and started patient on Advair and Pulmicort. Continue oxygen and wean as tolerated. Repeat ABG in a.m. We will also get abdomen pelvis CT with contrast to evaluate his underlying Crohn's enteritis and to evaluate for underlying intra-abdominal process as his PEG tube site is slightly erythematous and tender Continue his home Xanax Continue PPI and Pepcid Monitor CBC and electrolytes Replace electrolytes when necessary as per protocol DVT and GI prophylaxis as ordered Monitor and follow the patient closely Advance Directives: Yes VTE prophylaxis?: Chemical, Mechanical Plan of care discussed with patient/family: Yes
[2019-01-27] MEDS ORDERED: DELTASONE ONE (03:01)
[2019-01-27] MEDS: PERCOCET 5/325 PO PRN ×2 (03:04→18:19)
[2019-01-27] MEDS ORDERED: HABITROL TD ONE (03:05)
[2019-01-27] MEDS: DELTASONE PO SCH ×4 (03:05→21:04)
[2019-01-27 03:54] LABS: Chol/HDL Ratio 3.32 %
[2019-01-27] MEDS: NACL 0.9% 1000 ML 1,000 ML IV SCH ×2 (05:47→17:06)
[2019-01-27] MEDS: DILAUDID IV PRN ×4 (05:48→16:42)
--- NOTE | 2019-01-27 06:30 | Cat Scan Report ---
PROCEDURE: CT ABDOMEN PELVIS W CON, CT CHEST WO CON TECHNIQUE: CT imaging is obtained through the chest without contrast. Following intravenous administ ration of contrast, CT imaging is obtained through the abdomen and pelvis in portal venous and delaye d phases. Transaxial, coronal and sagittal reformations are provided. Positive enteric contrast was a lso ingested prior to the examination. HISTORY: abdominal pain with nausea vomiting COMPARISONS: Chest radiograph 01/26/2019 FINDINGS: Chest: Patchy nodular airspace disease is present throughout both lungs and most confluent in the left lower lung. No effusion or pneumothorax. Central airways are patent. Heart size is within normal limits. No pericardial effusion. Abdomen/pelvis: Patient status post prior laparotomy and gastric surgery. Lobular fluid collections are present in th e upper abdomen subjacent to the patient's incision on axial series 2, images 42-59 measure up to 5.3 x 3.3 cm and 2.2 x 3.2 cm. There is anterior upper abdominal wall stranding and edema surrounding a fluid collection on axial series 2, image 36 measuring approximately 2.7 x 2.5 cm. Possible prior her niorrhaphy. Superficial soft tissues are otherwise unremarkable. No pneumoperitoneum. Positive enteri c contrast is seen as far distally as the ascending colon. Small bowel and colon are normal in course and caliber. No findings of obstruction. Normal appendix. Positive enteric contrast is seen as far d istally as the descending colon. Cholecystectomy. The liver shows a nodular contour and widening of the periportal space. Well opacifi ed and patent portal vein is enlarged and measures up to 2 cm in caliber. Mild splenomegaly. No gastr oesophageal varices identified. The pancreas and adrenal glands are unremarkable. Kidneys show no worrisome lesions, hydronephrosis, or calculi. Urinary bladder is unremarkable. Aorta is normal in course and caliber. No acute or aggressive appearing skeletal findings. IMPRESSION: Patchy nodular multifocal airspace disease present extensively throughout both lungs and most conflue nt in the left lower lung. No pneumothorax or effusion. Patient status post prior laparotomy and gastric surgery. There are lobular fluid collections in the anterior upper abdomen subjacent to the patient's incision measuring up to 5.3 x 3.3 cm and 2.2 x 3.2 cm, which may represent seroma or abscess formation. Additional anterior abdominal wall collection e xtending to the skin measures approximately 2.7 x 2.5 cm and may also be infectious or inflammatory i n etiology. No pneumoperitoneum or bowel obstruction. Cirrhotic morphology of the liver with sequela of portal hypertension. No gastroesophageal varices ar e identified. Notification initiated via [facility] professional home health immediately following this dictation on 01/27/2019. This document is electronically signed by Gerardo Grant MD., January 27 2019 06:28:29 AM ET
[2019-01-27] MEDS ORDERED: PULMICORT 1 MG, BROVANA NEBU 15 MCG IH SCH (08:00)
[2019-01-27] MEDS ORDERED: PULMICORT IH SCH (08:00)
[2019-01-27] MEDS: TYLENOL PO PRN ×2 (08:10→22:47)
[2019-01-27] MEDS: XANAX PO SCH ×2 (09:17→21:05)
[2019-01-27] MEDS: LOVENOX SUB-Q SCH (09:18)
[2019-01-27] MEDS: PROTONIX PO SCH (09:18)
[2019-01-27] MEDS: HumaLOG SUB-Q SCH ×4 (09:19→22:51)
[2019-01-27] MEDS ORDERED: PEPCID PO SCH (10:00)
[2019-01-27] MEDS ORDERED: NON-FORMULARY (Esomeprazole Magnesium [Nexium] 40 MG) PO SCH (10:00)
[2019-01-27] MEDS ORDERED: WELLBUTRIN PO SCH (10:00)
[2019-01-27] MEDS: ATROVENT IH SCH ×3 (10:10→21:04)
[2019-01-27] MEDS: BROVANA NEBU IH SCH ×2 (10:11→21:04)
[2019-01-27] MEDS: PULMICORT IH SCH ×2 (10:11→21:04)
[2019-01-27] MEDS: XOPENEX IH SCH ×3 (10:12→21:05)
--- NOTE | 2019-01-27 12:04 | Event Note ---
Date: 01/27/19
[2019-01-27] MEDS ORDERED: LOPRESSOR PO ONE ×2 (12:05→13:00)
[2019-01-27] MEDS: SODIUM CHLORIDE FLUSH SYRINGE 10 ML IV SCH ×2 (13:15→21:07)
[2019-01-27] MEDS: WELLBUTRIN PO SCH (14:39)
--- NOTE | 2019-01-27 17:03 | Progress Note ---
Assessment and Plan Assessment and plan: Flu /Influenza A; viral infection; Respiratory isolation, antibiotics, Tamiflu Parenteral fluids, supportive care -Acute hypoxic respiratory failure Probably secondary to bilateral pneumonia versus COPD exacerbation Continue oxygen titrated O2 sats more than 90%, nebulizers, IV antibiotics, inhalation --COPD exacerbation; nebulizers and steroids antibiotics and supportive care --History of Crohn's disease; possible flareup Continue current management --Anxiety disorder; resume home antianxiety medications History Interval history: Patient seen and examined medical records reviewed No new events reported by the nursing staff Patient asking for more pain medications Alert awake oriented 3 Vital signs reviewed Hospitalist Physical - Constitutional Vitals: Temp Pulse Resp BP Pulse Ox 98.0 F 120 H 20 155/101 95 01/27/19 08:57 01/27/19 10:36 01/27/19 10:36 01/27/19 08:57 01/27/19 10:10 General appearance: Present: no acute distress, well-nourished - EENT Eyes: Present: PERRL, EOM intact - Neck Neck: Present: supple, normal ROM - Respiratory Respiratory effort: normal Respiratory: bilateral: diminished, negative: rales, rhonchi, wheezing - Cardiovascular Rhythm: regular Heart Sounds: Present: S1 & S2 - Extremities Extremities: no ischemia, No edema - Abdominal General gastrointestinal: soft, non-tender, non-distended, normal bowel sounds - Integumentary Integumentary: Present: clear, warm - Psychiatric Psychiatric: appropriate mood/affect, cooperative - Neurologic Neurologic: CNII-XII intact, moves all extremities Results - Labs CBC & Chem 7: 01/26/19 21:48 01/26/19 21:48 Labs: Laboratory Last Values WBC 8.2 K/mm3 (4.5-11.0) 01/26/19 21:48 RBC 3.85 M/mm3 (3.65-5.03) 01/26/19 21:48 Hgb 12.2 gm/dl (11.8-15.2) 01/26/19 21:48 Hct 35.9 % (35.5-45.6) 01/26/19 21:48 MCV 93 fl (84-94) 01/26/19 21:48 MCH 32 pg (28-32) 01/26/19 21:48 MCHC 34 % (32-34) 01/26/19 21:48 RDW 17.6 % (13.2-15.2) H 01/26/19 21:48 Plt Count 210 K/mm3 (140-440) 01/26/19 21:48 Add Manual Diff Complete 01/26/19 21:48 Total Counted 100 01/26/19 21:48 Seg Neutrophils % Manager Medicaid 01/26/19 21:48 Seg Neuts % (Manual) 90.0 % (40.0-70.0) H 01/26/19 21:48 Band Neutrophils % 3.0 % 01/26/19 21:48 Lymphocytes % (Manual) 2.0 % (13.4-35.0) L 01/26/19 21:48 Reactive Lymphs % (Man) 1.0 % 01/26/19 21:48 Monocytes % (Manual) 1.0 % (0.0-7.3) 01/26/19 21:48 Eosinophils % (Manual) 0 % (0.0-4.3) 01/26/19 21:48 Basophils % (Manual) 0 % (0.0-1.8) 01/26/19 21:48 Metamyelocytes % 3.0 % 01/26/19 21:48 Myelocytes % 0 % 01/26/19 21:48 Promyelocytes % 0 % 01/26/19 21:48 Blast Cells % 0 % 01/26/19 21:48 Nucleated RBC % 3.0 % (0.0-0.9) H 01/26/19 21:48 Seg Neutrophils # Man 7.4 K/mm3 (1.8-7.7) 01/26/19 21:48 Band Neutrophils # 0.2 K/mm3 01/26/19 21:48 Lymphocytes # (Manual) 0.2 K/mm3 (1.2-5.4) L 01/26/19 21:48 Abs React Lymphs (Man) 0.1 K/mm3 01/26/19 21:48 Monocytes # (Manual) 0.1 K/mm3 (0.0-0.8) 01/26/19 21:48 Eosinophils # (Manual) 0.0 K/mm3 (0.0-0.4) 01/26/19 21:48 Basophils # (Manual) 0.0 K/mm3 (0.0-0.1) 01/26/19 21:48 Metamyelocytes # 0.2 K/mm3 01/26/19 21:48 Myelocytes # 0.0 K/mm3 01/26/19 21:48 Promyelocytes # 0.0 K/mm3 01/26/19 21:48 Blast Cells # 0.0 K/mm3 01/26/19 21:48 WBC Morphology Not Reportable 01/26/19 21:48 Hypersegmented Neuts Not Reportable 01/26/19 21:48 Hyposegmented Neuts Not Reportable 01/26/19 21:48 Hypogranular Neuts Not Reportable 01/26/19 21:48 Smudge Cells Not Reportable 01/26/19 21:48 Toxic Granulation Not Reportable 01/26/19 21:48 Toxic Vacuolation Not Reportable 01/26/19 21:48 Dohle Bodies Not Reportable 01/26/19 21:48 Pelger-Huet Anomaly Not Reportable 01/26/19 21:48 Shona Rods Not Reportable 01/26/19 21:48 Platelet Estimate Consistent w auto 01/26/19 21:48 Clumped Platelets Not Reportable 01/26/19 21:48 Plt Clumps, EDTA Not Reportable 01/26/19 21:48 Large Platelets Not Reportable 01/26/19 21:48 Giant Platelets Not Reportable 01/26/19 21:48 Platelet Satelliting Not Reportable 01/26/19 21:48 Plt Morphology Comment Not Reportable 01/26/19 21:48 RBC Morphology Normal 01/26/19 21:48 Dimorphic RBCs Not Reportable 01/26/19 21:48 Polychromasia Not Reportable 01/26/19 21:48 Hypochromasia Not Reportable 01/26/19 21:48 Poikilocytosis Not Reportable 01/26/19 21:48 Anisocytosis Not Reportable 01/26/19 21:48 Microcytosis Not Reportable 01/26/19 21:48 Macrocytosis Not Reportable 01/26/19 21:48 Spherocytes Not Reportable 01/26/19 21:48 Pappenheimer Bodies Not Reportable 01/26/19 21:48 Sickle Cells Not Reportable 01/26/19 21:48 Target Cells Not Reportable 01/26/19 21:48 Tear Drop Cells Not Reportable 01/26/19 21:48 Ovalocytes Not Reportable 01/26/19 21:48 Helmet Cells Not Reportable 01/26/19 21:48 [place] Bodies Not Reportable 01/26/19 21:48 [place] Rings Not Reportable 01/26/19 21:48 William Cells Not Reportable 01/26/19 21:48 Bite Cells Not Reportable 01/26/19 21:48 Crenated Cell Not Reportable 01/26/19 21:48 Elliptocytes Not Reportable 01/26/19 21:48 Acanthocytes (Spur) Not Reportable 01/26/19 21:48 Rouleaux Not Reportable 01/26/19 21:48 Hemoglobin C Crystals Not Reportable 01/26/19 21:48 Schistocytes Not Reportable 01/26/19 21:48 Malaria parasites Not Reportable 01/26/19 21:48 ESR 63 mm/Hr (0-20) 01/27/19 02:58 Chidi Bodies Not Reportable 01/26/19 21:48 Hem Pathologist Commnt No 01/26/19 21:48 PT 12.7 Sec. (12.2-14.9) 01/26/19 21:48 INR 0.90 (0.87-1.13) 01/26/19 21:48 POC ABG pH 7.458 (7.35-7.45) H 01/27/19 01:15 POC ABG pCO2 36.2 (35-45) 01/27/19 01:15 POC ABG pO2 51 (80-105) L 01/27/19 01:15 POC ABG HCO3 25.6 (22-26 mml/L) 01/27/19 01:15 POC ABG Total CO2 27 (23-27mmol/L) 01/27/19 01:15 POC ABG O2 Sat 88 01/27/19 01:15 POC ABG Base Excess 2 ((-2) - (+3)mmol/L) 01/27/19 01:15 VBG pH 7.485 (7.320-7.420) H 01/26/19 21:48 FiO2 21 % 01/27/19 01:15 Sodium 137 mmol/L (137-145) 01/26/19 21:48 Potassium 4.4 mmol/L (3.6-5.0) 01/26/19 21:48 Chloride 98.7 mmol/L (98-107) 01/26/19 21:48 Carbon Dioxide 25 mmol/L (22-30) 01/26/19 21:48 Anion Gap 18 mmol/L 01/26/19 21:48 BUN 13 mg/dL (9-20) 01/26/19 21:48 Creatinine 0.6 mg/dL (0.8-1.5) L 01/26/19 21:48 Estimated GFR > 60 ml/min 01/26/19 21:48 BUN/Creatinine Ratio 22 % 01/26/19 21:48 Glucose 242 mg/dL (75-100) H 01/26/19 21:48 POC Glucose 180 (70-105) H 01/28/19 07:36 Hemoglobin A1c 6.8 % (4-6) H 01/26/19 22:27 Lactic Acid 0.90 mmol/L (0.7-2.0) 01/27/19 06:19 Calcium 8.8 mg/dL (8.4-10.2) 01/26/19 21:48 Total Bilirubin 0.40 mg/dL (0.1-1.2) 01/26/19 21:48 AST 17 units/L (5-40) 01/26/19 21:48 ALT 30 units/L (7-56) 01/26/19 21:48 Alkaline Phosphatase 127 units/L (35-129) 01/26/19 21:48 C-Reactive Protein 10.00 mg/dL (0.00-1.30) H 01/27/19 02:58 Total Protein 5.7 g/dL (6.3-8.2) L 01/26/19 21:48 Albumin 3.2 g/dL (3.9-5) L 01/26/19 21:48 Albumin/Globulin Ratio 1.3 % 01/26/19 21:48 Triglycerides 130 mg/dL (2-149) 01/27/19 02:58 Cholesterol 236 mg/dL (50-199) H 01/27/19 02:58 LDL Cholesterol Direct 172 mg/dL (50-130) H 01/27/19 02:58 HDL Cholesterol 71 mg/dL (40-59) H 01/27/19 02:58 Cholesterol/HDL Ratio 3.32 % 01/27/19 02:58 Urine Color Yellow (Yellow) 01/26/19 23:23 Urine Turbidity Clear (Clear) 01/26/19 23:23 Urine pH 7.0 (5.0-7.0) 01/26/19 23:23 Ur Specific [place] 1.027 (1.003-1.030) 01/26/19 23:23 Urine Protein <15 mg/dl mg/dL (Negative) 01/26/19 23:23 Urine Glucose (UA) 150 mg/dL (Negative) 01/26/19 23:23 Urine Ketones Neg mg/dL (Negative) 01/26/19 23:23 Urine Blood Neg (Negative) 01/26/19 23:23 Urine Nitrite Neg (Negative) 01/26/19 23:23 Urine Bilirubin Neg (Negative) 01/26/19 23:23 Urine Urobilinogen 4.0 mg/dL (<2.0) 01/26/19 23:23 Ur Leukocyte Esterase Neg (Negative) 01/26/19 23:23 Urine WBC (Auto) < 1.0 /HPF (0.0-6.0) 01/26/19 23:23 Urine RBC (Auto) < 1.0 /HPF (0.0-6.0) 01/26/19 23:23 Urine Mucus Few /HPF 01/26/19 23:23 Influenza A (Rapid) Positive (Negative) A 01/26/19 21:50 Influenza B (Rapid) Negative (Negative) 01/26/19 21:50 Group A Strep Rapid Negative (Negative) 01/26/19 21:50 Active Medications - Current Medications Current Medications: Generic Name Dose Route Start Last Admin Trade Name Freq PRN Reason Stop Dose Admin Acetaminophen 650 mg 01/27/19 02:40 01/27/19 08:10 Tylenol PO 650 mg Q4H PRN Administration Pain MILD(1-3)/Fever >100.5/RODRIGEZ Al Hydrox/Mg Hydrox/Simethicone 30 ml 01/27/19 02:40 Alum-Mag Hydrox-Simeth [phone]/5ml PO Q4H PRN Indigestion Alprazolam 1 mg 01/27/19 10:00 01/27/19 09:17 Xanax PO 1 mg BID ELVIRA Administration Arformoterol Tartrate 15 mcg 01/27/19 08:00 04/04/19 10:11 Brovana Nebu IH 15 mcg Q12HRT ELVIRA Administration Budesonide 1 mg 01/27/19 08:00 01/27/19 10:11 Pulmicort IH 1 mg Q12HRT ELVIRA Administration Bupropion HCl 75 mg 01/27/19 14:00 01/27/19 14:39 Wellbutrin PO 75 mg QDAY ELVIRA Administration Dextrose 50 ml 01/27/19 02:40 D50w (25gm) Syringe IV PRN PRN Hypoglycemia Enoxaparin Sodium 40 mg 01/27/19 10:00 01/27/19 09:18 Lovenox SUB-Q 40 mg QDAY ELVIRA Administration Hydromorphone HCl 2 mg 01/27/19 02:40 01/27/19 16:42 Dilaudid IV 2 mg Q3H PRN Administration Pain , Severe (7-10) Sodium Chloride 1,000 mls @ 125 mls/hr 01/27/19 03:00 01/27/19 05:47 Nacl 0.9% 1000 Ml IV 125 mls/hr DIRECT ELVIRA Administration Insulin Human Lispro 0 unit 01/27/19 07:30 01/27/19 16:45 Humalog SUB-Q Not Given ACHS [facility] Protocol Ipratropium [place] 0.5 mg 01/27/19 08:00 01/27/19 14:55 Atrovent IH Not Given Q6HRT [facility] Levalbuterol HCl 0.63 mg 01/27/19 08:00 01/27/19 14:54 Xopenex IH Not Given Q6HRT [facility] Metoprolol Tartrate 25 mg 01/27/19 22:00 Lopressor PO BID [facility] Naloxone HCl 0.1 mg 01/27/19 02:40 Narcan 0.4 Mg/1 Ml IV Q2MIN PRN Res Rate </= 8 or 02 SAT < 92% Ondansetron HCl 4 mg 01/27/19 02:40 01/27/19 08:37 Zofran IV 4 mg Q8H PRN Administration Nausea And Vomiting Oxycodone/Acetaminophen 1 tab 01/27/19 02:40 01/27/19 03:04 Percocet 5/325 PO 1 tab Q6H PRN Administration Pain, Moderate (4-6) Pantoprazole Sodium 40 mg 01/27/19 10:00 01/27/19 09:18 Protonix PO 40 mg QAM ELVIRA Administration Prednisone 20 mg 01/27/19 08:00 01/27/19 14:39 Deltasone PO 20 mg TID ELVIRA Administration Sodium Chloride 10 ml 01/27/19 10:00 01/27/19 13:15 Sodium Chloride Flush Syringe 10 Ml IV 10 ml BID ELVIRA Administration Sodium Chloride 10 ml 01/27/19 02:40 Sodium Chloride Flush Syringe 10 Ml IV PRN PRN LINE FLUSH Zolpidem Tartrate 5 mg 01/27/19 02:40 Ambien PO QHS PRN Insomnia
[2019-01-27] MEDS: LOPRESSOR PO SCH (21:05)
[2019-01-27] MEDS: TAMIFLU PO SCH (21:06)
[2019-01-28] MEDS: NACL 0.9% 1000 ML 1,000 ML IV SCH (00:26)
[2019-01-28] MEDS: XOPENEX IH SCH ×3 (03:08→14:38)
[2019-01-28] MEDS: ATROVENT IH SCH ×3 (03:09→14:38)
[2019-01-28] MEDS: PERCOCET 5/325 PO PRN ×2 (03:30→09:55)
[2019-01-28 06:02] LABS: Hematocrit 36.8 % (35.5-45.6); Hemoglobin 12.8 gm/dl (11.8-15.2); Mean Corpuscular HGB Conc 35 % (32-34); Mean Corpuscular Volume 90 fl (84-94); Platelet Count 197 K/mm3 (140-440); Red Blood Count 4.07 M/mm3 (3.65-5.03); Red Cell Distribution Width 17.4 % (13.2-15.2)
[2019-01-28 06:34] LABS: Alanine Aminotransferase 39 units/L (7-56); Albumin 2.9 g/dL (3.9-5); BUN/Creatinine Ratio 21; Blood Urea Nitrogen 15 mg/dL (9-20); Calcium 9.4 mg/dL (8.4-10.2); Hemolysis Index 15
[2019-01-28 08:08] LABS: Basophils % (Manual) 0 % (0.0-1.8); Eosinophils % (Manual) 0 % (0.0-4.3); Total Cells Counted 100
[2019-01-28 08:09] LABS: Anisocytosis 2+; Platelet Estimate Consistent w Auto
[2019-01-28] MEDS: PULMICORT IH SCH (09:26)
[2019-01-28] MEDS: BROVANA NEBU IH SCH (09:26)
[2019-01-28] MEDS: TAMIFLU PO SCH (09:59)
[2019-01-28] MEDS: HumaLOG SUB-Q SCH ×2 (09:59→13:40)
[2019-01-28] MEDS: DELTASONE PO SCH ×2 (10:00→17:39)
[2019-01-28] MEDS: LOPRESSOR PO SCH (10:01)
[2019-01-28] MEDS: LOVENOX SUB-Q SCH (10:01)
[2019-01-28] MEDS: PROTONIX PO SCH (10:01)
[2019-01-28] MEDS: SODIUM CHLORIDE FLUSH SYRINGE 10 ML IV SCH (10:01)
[2019-01-28] MEDS: XANAX PO SCH (10:02)
[2019-01-28 13:12] VITALS: BP 109/68
[2019-01-28] MEDS: WELLBUTRIN PO SCH (13:41)
--- NOTE | 2019-01-28 16:43 | Discharge Summary ---
Providers - Providers Date of Admission: 01/27/19 02:58 Date of discharge: 01/28/19 Attending physician: SETH JOYNER [facility] Reason for admission: Worsening shortness of breath and upper respiratory symptoms 2 days Condition: Stable Hospital course: Very pleasant 43 yr old male patient with significant past medical history of Crohn's disease and anxiety disorder was admitted through emergency room with worsening shortness of breath upper respiratory symptoms and abdominal pain off and on for for the last 2 days., Initial workup was consistent with flu/positive influenza A virus Admitted symptomatically managed, started on Tamiflu, placed on respiratory isolation Patient had an echocardiogram ejection fraction of 40-45%, Patient's symptoms significantly improved Today's comfortable afebrile continues to have mild upper respiratory symptoms significantly improved since admission Vital signs stable, physical examination prior to discharge his unremarkable Patient will be discharged on Tamiflu total of 5 days, advised to follow surgical mask when he is amongst people Advised to follow with primary care physician within one week for further evaluation and management Patient verbalized understanding Hemodynamically and clinically stable at discharge Discharge Diagnosis: --Flu /Influenza A; viral infection;Respiratory isolation,Tamiflu --COPD exacerbation; nebulizers and steroids antibiotics and supportive care --History of Crohn's disease; possible flareup --Anxiety disorder; resume home antianxiety medications Disposition: DC-01 TO HOME OR SELFCARE Time spent for discharge: 32 min Core Measure Documentation - Palliative Care Palliative Care/ Comfort Measures: Not Applicable - Core Measures Any of the following diagnoses?: none Exam - Constitutional Vitals: Temp Pulse Resp BP Pulse Ox 98.1 F 82 16 109/68 92 01/28/19 13:12 01/28/19 14:41 01/28/19 14:41 01/28/19 13:11 01/28/19 13:11 General appearance: Present: no acute distress, well-nourished - EENT Eyes: Present: PERRL, EOM intact - Neck Neck: Present: supple, normal ROM - Respiratory Respiratory effort: normal Respiratory: bilateral: diminished, negative: rales, rhonchi, wheezing - Cardiovascular Rhythm: regular Heart Sounds: Present: S1 & S2 - Extremities Extremities: no ischemia, No edema - Abdominal General gastrointestinal: Present: soft, non-tender, non-distended, normal bowel sounds - Integumentary Integumentary: Present: clear, warm - Musculoskeletal Musculoskeletal: strength equal bilaterally, generalized weakness - Psychiatric Psychiatric: appropriate mood/affect, cooperative - Neurologic Neurologic: CNII-XII intact, moves all extremities Plan Activity: advance as tolerated Diet: regular Special Instructions: other (respiratory isolation[great surgical mask when you are close to people]) Additional Instructions: Diet as tolerated. Droplet precautions/wear surgical mask. Follow up with: TAMARA BARTON MD [Primary Care Provider] - 3-5 Days Prescriptions: Metoprolol [Lopressor TAB] 25 mg PO BID #60 tablet Oseltamivir [Tamiflu] 75 mg PO BID #8 capsule Cetirizine HCl [ZyrTEC] 10 mg PO DAILY PRN #14 tab.rapdis PRN Reason: Congestion
== END 2019-01-28 18:00 | disposition home or self-care (01) ==
LOC: ED 21:27 → 4A 01-27 02:58 → INTOOBSV 01-27 02:58
PROVIDERS: ADMIT Internal Medicine Geriatric Medicine; ATTEND Internal Medicine
DX: J44.1 Chronic obstructive pulmonary disease with (acute) exacerbation (principal); J96.01 Acute respiratory failure with hypoxia; K50.90 Crohn's disease, unspecified, without complications; J10.1 Influenza due to other identified influenza virus with other respiratory manifestations; R10.9 Unspecified abdominal pain; G89.29 Other chronic pain; F41.9 Anxiety disorder, unspecified; R73.9 Hyperglycemia, unspecified; J03.90 Acute tonsillitis, unspecified; R50.9 Fever, unspecified; E66.9 Obesity, unspecified; F13.20 Sedative, hypnotic or anxiolytic dependence, uncomplicated; F17.210 Nicotine dependence, cigarettes, uncomplicated; Z98.890 Other specified postprocedural states
CPT/HCPCS: 36415; 71045; 71250; 74177; 80053; 80061; 81001; 82140; 82803; 82805; 82962; 83036; 83735; 84100; 85007; 85025; 85610; 85652; 86140; 87040; 87086; 87116; 87400; 87430; 93005; 93010; 93306; 94640; 94760; 96372; 96374; 96375; 96376; 99284; G0378; J1170; J1650; J2270; J2405; J7030; J7512; Q9967